=== PATIENT | male | born 1960 | race Caucasian/White ===

== ENCOUNTER 2016-12-17 19:59 | Emergency (ER) | payer BC ==
[2016-12-17 20:46] VITALS: BP 132/87
[2016-12-17] MEDS ORDERED: Tetan/Diph/Pertus SYR(Tdap)* 0.5 ML SYR(BOOSTRIX) use SYR IM ONE (21:03)
--- NOTE | 2016-12-17 21:19 | UC ---
Laceration HPI - HPI Summary HPI Summary: cut his right thumb on a plastic piece of his boat today. Thumb got crushed and twisted in a hole in the shroud of the motor and a plastic piece broke and cut his thumb. He has a flap lac and then a linear lac and an abrasion. 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 - Laceration Location: Hand Mechanism Of Injury: Sharp Trauma Onset/Duration: Sudden Onset, Lasting Hours, Still Present Severity: Moderate Pain Intensity: 4 Pain Scale Used: 0-10 Numeric Aggravating Factors: Nothing Related History: Dominant Hand Right - Allergies/Home Medications Allergies/Adverse Reactions: Allergies Allergy/AdvReac Type Severity Reaction Status Date / Time pollen, dust Allergy Runny Nose Uncoded 12/17/16 20:46 Home Medications: Home Medications Calcium Polycarbophil [Fiber Tabs] 625 mg PO DAILY 12/17/16 [History Confirmed 12/17/16] Calcium Polycarbophil [Fiber Tabs] 625 mg PO DAILY 12/17/16 [History Confirmed 12/17/16] Cholecalciferol TAB* [Vitamin D TAB*] 1,000 unit PO DAILY 12/17/16 [History Confirmed 12/17/16] Multiple Vitamin [Multivitamins] 1 cap PO DAILY 12/17/16 [History Confirmed ] Vitamin B Complex CAP* [B Complex CAP*] 1 cap PO DAILY 12/17/16 [History Confirmed 12/17/16] PMH/Surg Hx/FS Hx/Imm Hx Previously Healthy: Yes - Surgical History Surgical History: Yes Surgery Procedure, Year, and Place: appy; L5 laminectomy 2001- - Family History Known Family History: Positive: Hypertension - Social History Occupation: Retired Lives: With Family Alcohol Use: Rare Substance Use Type: None Smoking Status (MU): Former Smoker - Immunization History Most Recent Tetanus Shot: Unknown Review of Systems Constitutional: Negative Skin: Other - laceration right thumb Eyes: Negative ENT: Negative Respiratory: Negative Cardiovascular: Negative Gastrointestinal: Negative Genitourinary: Negative Motor: Negative Neurovascular: Negative Musculoskeletal: Arthralgia - pain right thumb Neurological: Negative Psychological: Negative All Other Systems Reviewed And Are Negative: Yes Physical Exam Triage Information Reviewed: Yes Appearance: Well-Appearing, Well-Nourished, Pain Distress Vital Signs: Initial Vital Signs Temp 98.4 F 12/17/16 20:33 Pulse 75 12/17/16 20:33 Resp 16 12/17/16 20:33 BP 132/87 12/17/16 20:33 elevated BP noted Vital Signs Reviewed: Yes Eyes: Positive: Conjunctiva Clear ENT: Positive: Normal ENT inspection Neck: Positive: Supple Respiratory: Positive: No respiratory distress Cardiovascular: Positive: RRR, Pulses Normal, Brisk Capillary Refill Musculoskeletal: Positive: Strength Intact, ROM Intact Neurological: Positive: Alert, Muscle Tone Normal Psychological Exam: Normal Skin: Positive: Other - 2 lacerations and an abrasion on right thumb: flap lac and linear lac Laceration Repair - Laceration Repair 1 Description: Linear Laceration Size After Repair: Length (cm) - 0.5, Width (mm) - 1, Depth (mm) - 1 Modified For Repair: No Type Injection: Digital Anesthesia Used: 2.0% Lido Cleansing Completed Via Routine Prep: Yes Irrigation With Pressure Irrigation Device: Yes Closure Material: Sutures Closure Method: Single Layer Suture Of: Skin Suture Type: Nylon - one suture 2 Description: Irregular - flap Laceration Size After Repair: Length (cm) - 2, Width (mm) - 2, Depth (mm) - 1 Contamination/FB Removal: no Modified For Repair: No Type Injection: Digital Anesthesia Used: 2.0% Lido Cleansing Completed Via Routine Prep: Yes Irrigation With Pressure Irrigation Device: Yes Closure Material: Sutures Closure Method: Single Layer Suture Of: Skin Suture Type: Nylon - five Laceration Course/Dx - Course/Dx Course Of Treatment: xray neg fx, neg FB. sutured - Differential Dx - Laceration/Wound Differental Diagnoses: Avulsion, Foreign Body, Laceration Provider Diagnoses: thumb laceration. tetanus update. elevated BP without dx of HTN Discharge - Discharge Plan Condition: Stable Disposition: HOME Patient Education Materials: Diphtheria/Acellular Pertussis/Tetanus Vaccine ( By injection), Finger Laceration (ED) Referrals: Andrey Smith MD [Primary Care Provider] - Additional Instructions: You should have your stitches removed in 7-10 days. You have 5 stitches in the flap laceration and one stitch in the straight laceration. Keep it clean and dry. Watch for infection-drainage, red streak, increased pain or increased redness. Change the dressing daily after washing with soap and water. Use a small amount of triple antibiotic ointment with the bandage. Return to urgent care if you have new or worsening symptoms. Addendum entered and electronically signed by Sweta Moraes MD 12/18/16 00: 08:
[2016-12-17] MEDS ORDERED: Acetaminophen TAB* 325 MG PO ONE (21:27)
[2016-12-17] MEDS ORDERED: Lidocaine 2% PF * 5 ML VIAL INJ ONE (21:35)
--- NOTE | 2016-12-17 21:48 | RAD ---
INDICATION: Right thumb injury. TECHNIQUE: 3 views of the right thumb were obtained. FINDINGS: There is soft tissue swelling and a soft tissue defect adjacent to the distal phalanx. No acute fracture or radiopaque foreign body is seen. Joint spaces appear maintained. IMPRESSION: SOFT TISSUE INJURY, NO FRACTURE IS SEEN.
[2016-12-17] MEDS ORDERED: Lidocaine 2% PF * 5 ML VIAL ONE (22:06)
== END 2016-12-17 22:51 | disposition home or self-care (01) ==
LOC: UCCORT 19:59
DX: S61.011A Laceration without foreign body of right thumb without damage to nail, initial encounter (principal); W45.8XXA Other foreign body or object entering through skin, initial encounter; Y93.9 Activity, unspecified; Y92.9 Unspecified place or not applicable; Z23 Encounter for immunization; Z87.891 Personal history of nicotine dependence
CPT/HCPCS: 12001; 90471; 90715; 99211; A9270-GY; G0463

== ENCOUNTER 2016-12-27 08:08 | Emergency (ER) | payer BC ==
[2016-12-27 08:25] VITALS: BP 136/82
--- NOTE | 2016-12-27 08:40 | UC ---
HPI Wound/Suture Re-check - HPI Summary HPI Summary: here for suture removal for the right thumb sutures were placed her 8 days ago - History Of Current Complaint Chief Complaint: UCSkin Stated Complaint: SUTURE REMOVAL Time Seen by Provider: 12/27/16 08:30 Hx Obtained From: Patient Onset/Duration: Sudden Onset, Lasting Days - 8, Still Present Severity: Moderate Procedure Type: suture removal right thumb Surgery Date: 12/20/16 Hands: 1 - laceration right thumb - Allergies/Home Medications Allergies/Adverse Reactions: Allergies Allergy/AdvReac Type Severity Reaction Status Date / Time pollen, dust Allergy Runny Nose Uncoded 12/27/16 08:25 Home Medications: Home Medications Otc Allergy Med 1 dose PO DAILY 12/27/16 [History Confirmed 12/27/16] PMH/Surg Hx/FS Hx/Imm Hx Previously Healthy: Yes - Surgical History Surgical History: Yes Surgery Procedure, Year, and Place: appy; L5 laminectomy 2001- - Family History Known Family History: Positive: Hypertension - Social History Alcohol Use: Rare Substance Use Type: None Smoking Status (MU): Former Smoker - Immunization History Most Recent Tetanus Shot: 11/2016 Review of Systems Constitutional: Negative Eyes: Negative ENT: Negative Respiratory: Negative Cardiovascular: Negative All Other Systems Reviewed And Are Negative: Yes Physical Exam Triage Information Reviewed: Yes Appearance: Well-Appearing, No Pain Distress, Well-Nourished Vital Signs: Initial Vital Signs Temp 98.2 F 12/27/16 08:15 Pulse 70 12/27/16 08:15 Resp 18 12/27/16 08:15 BP 136/82 12/27/16 08:15 Eye Exam: Normal Eyes: Positive: Conjunctiva Clear ENT: Positive: Normal ENT inspection, Hearing grossly normal, Pharynx normal Neck: Positive: Supple, Nontender, No Lymphadenopathy Respiratory: Positive: Lungs clear, Normal breath sounds, No respiratory distress Cardiovascular: Positive: RRR, No Murmur, Pulses Normal Skin: Positive: Other - right thumb laceration, healing well, no erythema, no discharge, sutures are intact x 5 , was removed Course/Dx - Differential Dx - Laceration/Wound Provider Diagnoses: suture removal Discharge - Discharge Plan Condition: Stable Disposition: HOME Patient Education Materials: Stitches Removal (ED) Referrals: Andrey Smith MD [Primary Care Provider] - If Needed
== END 2016-12-27 08:43 | disposition home or self-care (01) ==
LOC: UCCORT 08:08
DX: Z48.02 Encounter for removal of sutures (principal)
CPT/HCPCS: 99211; G0463